=== PATIENT | female | born 1985 | race African-American/Black ===

== ENCOUNTER → 2018-01-27 | Outpatient (CLI) | payer BC ==
[2018-01-27 17:59] LABS: CHOLESTEROL 212.09 mg/dL (0-200); TRIGLYCERIDES 69 mg/dL (<150)
[2018-01-27 18:10] LABS: DIRECT LDL 133 mg/dL (<100)
== END ==
LOC: OD 15:54
PROVIDERS: ATTEND Internal Medicine Geriatric Medicine
DX: E03.9 Hypothyroidism, unspecified (principal); Z68.44 Body mass index [BMI] 60.0-69.9, adult
CPT/HCPCS: 36415; 80061

== ENCOUNTER 2019-08-28 23:01 | Emergency (ER) | payer BC ==
[2019-08-28] MEDS ORDERED: ASPIRIN 81 MG TABLET, CHEWABLE PO ONE (23:49)
[2019-08-29 00:30] LABS: ABSOLUTE BASOPHILS # (AUTO) 0.1 10^3/uL (0.0-0.2); ABSOLUTE EOSINOPHILS # (AUTO) 0.3 10^3/uL (0.0-0.6); ABSOLUTE LYMPHOCYTES (AUTO) 3.9 10^3/uL (0.5-4.7); ABSOLUTE MONOCYTES (AUTO) 0.6 10^3/uL (0.1-1.4); ABSOLUTE NEUT (AUTO) 5.5 10^3/uL (1.7-8.2); BASOPHILS % (AUTO) 0.6 % (0-2); EOSINOPHILS % (AUTO) 2.5 % (0-6); HEMATOCRIT 38.6 % (36.0-47.0); HEMOGLOBIN 12.5 g/dL (12.0-15.5); LYMPHOCYTES % (AUTO) 37.7 % (13-45); MEAN CORPUSCULAR HEMOGLOBIN 27.6 pg (27.0-33.4); MEAN CORPUSCULAR HGB CONC 32.4 g/dL (32.0-36.0); MEAN CORPUSCULAR VOLUME 85 fl (80-97); MONOCYTES % (AUTO) 6.2 % (3-13); PLATELET COUNT 223 10^3/uL (150-450); RED BLOOD COUNT 4.53 10^6/uL (3.72-5.28); RED CELL DISTRIBUTION WIDTH 15.1 % (11.5-14.0); TOTAL CELLS COUNTED % (AUTO) 100 %; WHITE BLOOD COUNT 10.3 10^3/uL (4.0-10.5)
[2019-08-29 00:48] LABS: ALBUMIN 3.7 g/dL (3.5-5.0); ALKALINE PHOSPHATASE 107 U/L (38-126); ANION GAP 9 (5-19); ASPARTATE AMINO TRANSFERASE 27 U/L (14-36); BILIRUBIN,DIRECT 0.1 mg/dL (0.0-0.4); BILIRUBIN,TOTAL 0.4 mg/dL (0.2-1.3); BLOOD UREA NITROGEN 20 mg/dL (7-20); CALCIUM 8.9 mg/dL (8.4-10.2); CARBON DIOXIDE 23 mmol/L (22-30); CHLORIDE 106 mmol/L (98-107); CREATINE KINASE 68 U/L (30-135); GLUCOSE 81 mg/dL (75-110); POTASSIUM 4.2 mmol/L (3.6-5.0); TOTAL PROTEIN 6.9 g/dL (6.3-8.2)
[2019-08-29 00:59] LABS: CREATINE KINASE MB 0.51 ng/mL (<4.55)
[2019-08-29 01:01] LABS: TROPONIN I < 0.012 ng/mL
--- NOTE | 2019-08-29 01:08 | RADIOLOGY REPORT (SQ) ---
CLINICAL HISTORY: cp COMPARISON: None. TECHNIQUE: XR CHEST 2 VIEWS 08/29/2019 12:08 AM CDT FINDINGS: Cardiac silhouette is normal in size. Lungs are clear without consolidation, atelectasis, mass or edema. There is no pleural effusion. There is no pneumothorax. There are no acute osseous findings. IMPRESSION: Clear lungs.
--- NOTE | 2019-08-29 01:34 | ER Document Report ---
ED General - General Chief Complaint: Chest Pain Stated Complaint: CHEST PAIN Time Seen by Provider: 08/29/19 00:03 Primary Care Provider: TIGIST ENGLISH MD [Primary Care Provider] - Follow up as needed Notes: Patient is a 34-year-old female presents to the emergency department for left- sided neck pain. Patient voices she has had left-sided neck pain with some pain radiating to her left upper extremity for approximately a week. Patient voices she read on [employer] that anything in your left upper extremity could be her heart which is why she presents to the emergency room. Patient's denying any chest pain, pressure. She is denying any respiratory distress. Patient voices general malaise. Patient's denying any headache, URI symptoms, fever. Patient is denying any injury or trauma noted to her neck or left upper extremity. Patient voices a history of hypothyroid, takes Synthroid, has no allergies, last menstrual period was 3 weeks ago. TRAVEL OUTSIDE OF THE [place] IN LAST 30 DAYS: No - Related Data Allergies/Adverse Reactions: No Known Allergies Allergy (Verified 02/21/15 19:11) Home Medications: Levothyroxine. control pill Past Medical History - General Information source: Patient - Social History Smoking Status: Never Smoker Chew tobacco use (# tins/day): No Frequency of alcohol use: None Drug Abuse: None Family History: Reviewed & Not Pertinent Patient has suicidal ideation: No Patient has homicidal ideation: No Endocrine Medical History: Reports: Hx Hypothyroidism Past Surgical History: Reports: Hx Section - Immunizations Hx Diphtheria, Pertussis, Tetanus Vaccination: Yes Review of Systems - Review of Systems Constitutional: denies: Fever EENT: See HPI Cardiovascular: See HPI Respiratory: See HPI Gastrointestinal: See HPI Genitourinary: denies: Dysuria Female Genitourinary: See HPI Musculoskeletal: See HPI Skin: See HPI Hematologic/Lymphatic: No symptoms reported Neurological/Psychological: See HPI Physical Exam - Vital signs Vitals: Temp Pulse Resp BP Pulse Ox 97.6 F 96 18 138/79 H 100 08/28/19 23:18 08/28/19 23:18 08/28/19 23:18 08/28/19 23:18 08/28/19 23:18 - Notes Notes: GENERAL: Morbidly obese, alert, interacts well. No acute distress. HEAD: Normocephalic, atraumatic. EYES: Pupils equal, round, and reactive to light. Extraocular movements intact. ENT: Oral mucosa moist, tongue midline. NECK: Full range of motion. Supple. Trachea midline. No nuchal rigidity. Generalized left cervical paraspinal tenderness noted. Pain also noted to the left trapezius muscle. LUNGS: Clear to auscultation bilaterally, no wheezes, rales, or rhonchi. No respiratory distress. HEART: Regular rate and rhythm. No murmur ABDOMEN: Soft, non-tender. Non-distended. Bowel sounds present in all 4 quadrants. EXTREMITIES: Moves all 4 extremities spontaneously. No edema, normal radial and dorsalis pedis pulses bilaterally. No cyanosis. BACK: no cervical, thoracic, lumbar midline tenderness. No saddle anesthesia, normal distal neurovascular exam. NEUROLOGICAL: Alert and oriented x3. Normal speech. cranial nerves II through XII grossly intact. PSYCH: Normal affect, normal mood. SKIN: Warm, dry, normal turgor. No rashes or lesions noted. Course - Re-evaluation Re-evalutation: Initial orders placed by fish hatchery specialist. Laboratory 08/29/19 08/29/19 08/29/19 00:18 00:18 00:18 WBC 10.3 RBC 4.53 Hgb 12.5 Hct 38.6 MCV 85 MCH 27.6 MCHC 32.4 RDW 15.1 H Plt Count 223 Lymph % (Auto) 37.7 Monona % (Auto) 6.2 Eos % (Auto) 2.5 Baso % (Auto) 0.6 Absolute Neuts (auto) 5.5 Absolute Lymphs (auto) 3.9 Absolute Monos (auto) 0.6 Absolute Eos (auto) 0.3 Absolute Basos (auto) 0.1 Seg Neutrophils % 53.0 Sodium 138.4 Potassium 4.2 Chloride 106 Carbon Dioxide 23 Anion Gap 9 BUN 20 Creatinine 0.77 Est GFR ( Amer) > 60 Est GFR (MDRD) Non-Af > 60 Glucose 81 Calcium 8.9 Total Bilirubin 0.4 Direct Bilirubin 0.1 Neonat Total Bilirubin Not Reportable Neonat Direct Bilirubin Not Reportable Neonat Indirect Bili Not Reportable AST 27 ALT 22 Alkaline Phosphatase 107 Creatine Kinase 68 CK-MB (CK-2) 0.51 Troponin I < 0.012 Total Protein 6.9 Albumin 3.7 Chest X-Ray 08/29/19 00:08 IMPRESSION: Clear lungs. Based on patient's physical exam and story I do feel as though her Neck pain is muscular in nature. Patient's denying any chest pain. her initial orders placed by triage nurse as patient was complaining of left arm pain and appare ntly voiced to triage nurse she was concerned about her heart based on something she read on [employer]. Patient has 5 out of 5 strength noted all 4 extremities. She has no nuchal rigidity and no cervical spine tenderness. Patient's denying headache, she is denying any fevers, denying any rash or long exposures to outdoor activities. Discussed with patient treatment with muscle relaxers, Toradol, follow-up with primary care provider. Patient stable for discharge. - Vital Signs Vital signs: Temp Pulse Resp BP Pulse Ox 97.6 F 96 20 148/81 H 98 08/28/19 23:18 08/28/19 23:18 08/29/19 00:08 08/29/19 00:08 08/29/19 00:20 - Laboratory Result Diagrams: 08/29/19 00:18 08/29/19 00:18 Laboratory results interpreted by me: 08/29/19 08/29/19 00:18 02:04 RDW 15.1 H Urine Urobilinogen 2.0 H Ur Leukocyte Esterase TRACE H Discharge - Discharge Clinical Impression: Neck pain Condition: Stable Disposition: HOME, SELF-CARE Additional Instructions: As we discussed you have been seen and treated in the emergency department for your neck pain. I do feel as though this neck pain is muscular in nature. All of your laboratory testing has come back normal. Please make sure you take [id number] Tylenol or Motrin for generalized distress. Please also make sure he follow-up with your primary care provider in the next 12 to 24 hours. Please immediately return to the emergency room for any concerns. Forms: Return to Work Referrals: TIGIST ENGLISH MD [Primary Care Provider] - Follow up as needed
[2019-08-29] MEDS ORDERED: KETOROLAC TROMETHAMINE INJ/PF 30 MG/1 ML SDV IV ONE (01:52)
[2019-08-29] MEDS ORDERED: CYCLOBENZAPRINE HCL 10 MG TABLET PO ONE (01:52)
--- NOTE | 2019-08-29 02:15 | EKG REPORT ---
SEVERITY:- OTHERWISE NORMAL ECG - SINUS TACHYCARDIA : Confirmed by: Tigre Villasenor 29-Aug-2019 02:14:39
[2019-08-29 02:26] LABS: APPEARANCE,URINE SLIGHTLY-CLOUDY; BILIRUBIN,URINE NEGATIVE (NEGATIVE); COLOR,URINE YELLOW; GLUCOSE, URINE NEGATIVE (NEGATIVE); KETONES,URINE NEGATIVE (NEGATIVE); LEUKOCYTE ESTERASE,URINE TRACE (NEGATIVE); NITRITE,URINE NEGATIVE (NEGATIVE); PROTEIN,URINE NEGATIVE (NEGATIVE); URINE SPECIFIC GRAVITY 1.027
[2019-08-29 02:54] VITALS: BP 144/87
== END 2019-08-29 02:54 | disposition home or self-care (01) ==
LOC: ER 23:01
DX: M54.2 Cervicalgia (principal); R07.9 Chest pain, unspecified; E03.9 Hypothyroidism, unspecified
CPT/HCPCS: 93005; 36415; 82553; 82550; 84703; 85025; 80053; 81001; 84484; 71046; 93010; J1885; 96374; 99284

== ENCOUNTER 2020-09-19 18:08 | Emergency (ER) | payer BC ==
--- NOTE | 2020-09-19 19:05 | ER Document Report ---
ED Medical Screen (RME) - General Chief Complaint: Chest Pain > 30 Stated Complaint: CHEST PAIN Time Seen by Provider: 09/19/20 18:59 Primary Care Provider: TIGIST ENGLISH MD [Primary Care Provider] - Follow up as needed Mode of Arrival: Ambulatory Information source: Patient Notes: 35-year-old female presented to ED for complaint of body aches for the last 2 days. She states it started on the right arm than the left arm than the neck did not start her body aches all over then yesterday and today she has had chest pain to come and go. She states she did have nasal congestion a couple weeks ago but does not at this time. She does not have the sore throat or any fevers chills nausea or vomiting. She states her mother has scared to that she was having a cardiac arrest. The patient was evaluated during the global Covid 19 pandemic, and that diagnosis was suspected/considered upon their initial presentation. Their evaluation, treatment and testing was consistent with current guidelines for patients who present with complaints or symptoms that may be related to Covid 19. I have greeted and performed a rapid initial assessment of this patient. A comprehensive ED assessment and evaluation of the patient, analysis of test results and completion of medical decision making process will be conducted by an additional ED providers. TRAVEL OUTSIDE OF THE [place] IN LAST 30 DAYS: No - Related Data Allergies/Adverse Reactions: No Known Allergies Allergy (Verified 09/19/20 18:58) Past Medical History Endocrine Medical History: Reports: Hx Hypothyroidism Past Surgical History: Reports: Hx Section - Immunizations Hx Diphtheria, Pertussis, Tetanus Vaccination: Yes Physical Exam - Vital signs Vitals: Temp Pulse Resp BP Pulse Ox 98.4 F 87 18 137/79 H 100 09/19/20 18:37 09/19/20 18:37 09/19/20 18:37 09/19/20 18:37 09/19/20 18:37 Course - Vital Signs Vital signs: Temp Pulse Resp BP Pulse Ox 98.4 F 87 18 137/79 H 100 09/19/20 18:37 09/19/20 18:37 09/19/20 18:37 09/19/20 18:37 09/19/20 18:37 Doctor's Discharge - Discharge Referrals: TIGIST ENGLISH MD [Primary Care Provider] - Follow up as needed
--- NOTE | 2020-09-19 19:46 | RADIOLOGY REPORT (SQ) ---
EXAM DESCRIPTION: CHEST SINGLE VIEW IMAGES COMPLETED DATE/TIME: 09/19/2020 7:36 pm REASON FOR STUDY: chest pain COMPARISON: 08/29/2019 EXAM PARAMETERS: NUMBER OF VIEWS: One view. TECHNIQUE: Single frontal radiographic view of the chest acquired. RADIATION DOSE: NA LIMITATIONS: None. FINDINGS: LUNGS AND PLEURA: No opacities, masses or pneumothorax. No pleural effusion. MEDIASTINUM AND HILAR STRUCTURES: No masses. Contour normal. HEART AND VASCULAR STRUCTURES: Heart normal in size. Normal vasculature. BONES: No acute findings. HARDWARE: None in the chest. OTHER: No other significant finding. IMPRESSION: NO ACUTE RADIOGRAPHIC FINDING IN THE CHEST. TECHNICAL DOCUMENTATION: JOB ID: [id number] 2010 [employer]- All Rights Reserved Reading location - IP/workstation name: [email or web address]
--- NOTE | 2020-09-19 21:07 | ER Document Report ---
ED General - General Chief Complaint: Chest Pain > 30 Stated Complaint: CHEST PAIN Time Seen by Provider: 09/19/20 18:59 Primary Care Provider: TIGIST ENGLISH MD [Primary Care Provider] - Follow up as needed Mode of Arrival: Ambulatory Information source: Patient Notes: Patient is a 35-year-old female comes emergency room with a 2 to 3-day onset of generalized body aches. Patient states that on Thursday evening patient had some discomfort in her right arm which moved on Thursday to the left arm and bilateral lower extremities and then it moved up to the neck and then finally all over the body today of having discomfort and aches. Patient states her mother scared her with her complaints that she might be having a heart attack so she is here to ER Evaluation. Patient does acknowledge that she had a similar presentation approximately 1 year ago in March 2019 was seen here and then followed up with Dr. nEglish who told her it was a tension type presentation gave her a shot and she has not had any problems since that point time. Patient states she has only a history of hypothyroidism and gets that checked every 6 months by that doctor. She works at home in [employer] and is on the computer a lot. No history of heart disease in the family with the exception of the mother who has had to heart attacks in the past. And mother also has a history of diabetes but no one else in the family does. Patient currently does not smoke drink or do drugs. She is currently taking oral control. Last menstrual was August 22. Currently she is having no chest pain she only had a couple of short instances where she had a little Twitter in the heart but that stopped. 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 Son is home schooled. Patient does not leave the house often. does go out and about but wears a mask. No known exposures to coronavirus. Patient has not been tested for it. TRAVEL OUTSIDE OF THE [place] IN LAST 30 DAYS: No - HPI Onset: Other - 3 days Onset/Duration: Gradual Quality of pain: Achy Severity: Moderate Pain Level: 3 Associated symptoms: Body/muscle aches, Chest pain. denies: Nonproductive cough, Productive cough, Fever, Nausea, Vomiting, Shortness of breath, Sweating, Weakness Exacerbated by: Denies Relieved by: Denies Similar symptoms previously: Yes Recently seen / treated by doctor: No - Related Data Allergies/Adverse Reactions: No Known Allergies Allergy (Verified 09/19/20 18:58) Home Medications: thyroid. control. pertmine ? Past Medical History - General Information source: Patient - Social History Smoking Status: Never Smoker Cigarette use (# per day): No Chew tobacco use (# tins/day): No Frequency of alcohol use: None Drug Abuse: None Lives with: Family Family History: Reviewed & Not Pertinent Patient has homicidal ideation: No Endocrine Medical History: Reports: Hx Hypothyroidism Past Surgical History: Reports: Hx Section - Immunizations Hx Diphtheria, Pertussis, Tetanus Vaccination: Yes Review of Systems - Review of Systems Constitutional: No symptoms reported EENT: No symptoms reported Cardiovascular: See HPI, Chest pain Respiratory: No symptoms reported Gastrointestinal: No symptoms reported Genitourinary: No symptoms reported Female Genitourinary: No symptoms reported Musculoskeletal: See HPI, Muscle pain, Neck pain - 35 but cardiac vital signs of Skin: No symptoms reported Hematologic/Lymphatic: No symptoms reported Neurological/Psychological: No symptoms reported -: Yes All other systems reviewed and negative Physical Exam - Vital signs Vitals: Temp Pulse Resp BP Pulse Ox 98.4 F 87 18 137/79 H 100 09/19/20 18:37 09/19/20 18:37 09/19/20 18:37 09/19/20 18:37 09/19/20 18:37 Interpretation: Hypertensive - Notes Notes: PHYSICAL EXAMINATION: GENERAL: Well-appearing, well-nourished and in no acute distress. HEAD: Atraumatic, normocephalic. EYES: Pupils equal round and reactive to light, extraocular movements intact, conjunctiva are normal. ENT: Nares patent, oropharynx clear without exudates. Moist mucous membranes. NECK: Normal range of motion, supple without lymphadenopathy LUNGS: Breath sounds clear to auscultation bilaterally and equal. No wheezes rales or rhonchi. HEART: Regular rate and rhythm without murmurs ABDOMEN: Soft, nontender, nondistended abdomen. No guarding, no rebound. No masses appreciated. Female : deferred Musculoskeletal: Normal range of motion, no pitting or edema. No cyanosis. NEUROLOGICAL: Normal speech, normal gait. Normal sensory, motor exams PSYCH: Normal mood, normal affect. SKIN: Warm, Dry, normal turgor, no rashes or lesions noted. Course - Re-evaluation Re-evalutation: 09/19/20 21:11 Patient does see on a fairly regular basis. Patient states that she gets her cholesterol checked often twice a year and she is on no cholesterol medications. She does have a history of hypothyroidism is taking medications she was checked few months back. But given the patient is having little twinges in her heart and body aches and pains I am going to repeat the TSH here tonight. We will do a quick cardiac work-up although I do not expect to find anything cardiac maurice. Patient does sit at a computer all day long which would explain her neck pain although she has no neurologic deficits and she has full range of motion in all planes with her cervical spine without any discomfort. There are no palpable spasms in the neck noted at this time either. And she has good follow-up as stated with her primary doctor. 09/19/20 23:35 Patient's lab work came back showing that she has a slight shift with her neutrophils starting to be a little bit lower with a slightly low WBC of 3.6. I looked at this to be some type of viral presentation. I did check her cardiac enzymes that are negative EKG is perfectly textbook normal and patient is feeling much better now just being here. She has had no fever no nausea no vomiting or diarrhea no chest pain anymore since she has been here. No history of cardiac on her side. So I feel safe sending her home especially since she has good follow-up with Dr. English patient will contact her office tomorrow and set an appointment. She has been instructed to return here if she should get short of breath or have increasing fevers. - Vital Signs Vital signs: Temp Pulse Resp BP Pulse Ox 98.7 F 85 17 136/77 H 99 09/19/20 22:31 09/19/20 22:31 09/19/20 22:31 09/19/20 22:31 09/19/20 22:31 - Laboratory Result Diagrams: 09/19/20 22:15 09/19/20 22:15 Laboratory results interpreted by me: 09/19/20 09/19/20 22:15 22:15 WBC 3.6 L RDW 14.1 H Lymph % (Auto) 51.6 H Absolute Neuts (auto) 1.3 L Seg Neutrophils % 35.4 L Sodium 135.2 L Glucose 124 H - EKG Interpretation by Me EKG shows normal: Sinus rhythm - 86 bpm, Marissa - Normal axis, Intervals - Normal intervals, QRS Complexes - Normal QRS complexes, ST-T Waves - ST-T waves appear normal Rate: Normal Rhythm: NSR Marissa/QRS: No: Right axis deviation, Left axis deviation, RBBB, LBBB Voltage: No: Increased voltage When compared to previous EKG there are: No significant change Additional EKG results interpreted by me: 09/19/20 21:44 Reviewed by myself emergency room physician certified ophthalmic surgical assistant also reviewed by the emergency room physician and finding no abnormalities. Discharge - Discharge Clinical Impression: Upper respiratory infection, viral, Atypical chest pain, Viral syndrome Condition: Stable Disposition: HOME, SELF-CARE Instructions: Acetaminophen, Viral Syndrome ([facility]) Additional Instructions: Home and rest. Tylenol alternate with Motrin every 4 hours for body aches pains and fevers. As we discussed your TSH is in the middle of the road which is perfect. Your EKG was normal sinus rhythm and no sign of any abnormalities. And your lab work as we discussed showed a little bit of a shift towards a viral and with your neutrophils being low. As we discussed you have a low risk for any coronavirus contact however is always the possibility somewhere along the li ne you did come in contact with that so at this point it takes 48 to 72 hours for the test to come back. And as stated they will email you. As we have discussed if you have any increasing pain or discomfort return to ER for reevaluation. Follow-up with the end of this week or the first of next. Forms: Elevated Blood Pressure Referrals: TIGIST ENGLISH MD [Primary Care Provider] - Follow up as needed
[2020-09-19 22:32] VITALS: BP 136/77
[2020-09-19 22:35] LABS: ABSOLUTE LYMPHOCYTES (AUTO) 1.9 10^3/uL (0.5-4.7); ABSOLUTE MONOCYTES (AUTO) 0.4 10^3/uL (0.1-1.4); ABSOLUTE NEUT (AUTO) 1.3 10^3/uL (1.7-8.2); BASOPHILS % (AUTO) 1.2 % (0-2); EOSINOPHILS % (AUTO) 0.6 % (0-6); HEMATOCRIT 38.5 % (36.0-47.0); HEMOGLOBIN 12.7 g/dL (12.0-15.5); LYMPHOCYTES % (AUTO) 51.6 % (13-45); MEAN CORPUSCULAR HEMOGLOBIN 27.8 pg (27.0-33.4); MEAN CORPUSCULAR VOLUME 84 fl (80-97); MONOCYTES % (AUTO) 11.2 % (3-13); PLATELET COUNT 202 10^3/uL (150-450); RED BLOOD COUNT 4.57 10^6/uL (3.72-5.28); RED CELL DISTRIBUTION WIDTH 14.1 % (11.5-14.0); SEGMENTED NEUTROPHILS % (AUTO) 35.4 % (42-78); TOTAL CELLS COUNTED % (AUTO) 100 %; WHITE BLOOD COUNT 3.6 10^3/uL (4.0-10.5)
[2020-09-19 22:58] LABS: ALBUMIN 3.8 g/dL (3.5-5.0); ALKALINE PHOSPHATASE 119 U/L (38-126); ANION GAP 10 (5-19); ASPARTATE AMINO TRANSFERASE 24 U/L (14-36); BILIRUBIN,TOTAL 0.2 mg/dL (0.2-1.3); BLOOD UREA NITROGEN 15 mg/dL (7-20); CALCIUM 8.8 mg/dL (8.4-10.2); CARBON DIOXIDE 24 mmol/L (22-30); CHLORIDE 101 mmol/L (98-107); CREATINE KINASE 51 U/L (30-135); GLUCOSE 124 mg/dL (75-110); POTASSIUM 4.1 mmol/L (3.6-5.0)
--- NOTE | 2020-09-21 00:29 | EKG REPORT ---
SEVERITY:- NORMAL ECG - SINUS RHYTHM : Confirmed by: Tigre Villasenor 21-Sep-2020 00:28:47
--- OUTSIDE RECORDS SUMMARY | 2020-09-21 14:46 | XMS REPORT ---
:1985 [facility] Address [facility] [address] [place] [address] Care Team Providers Name Role Phone HARJINDER Attending Clinician Unavailable Allergies, Adverse Reactions, Alerts This patient has no known allergies or adverse reactions. Medications Ordered Filled Start Stop Current Ordering Indication Dosage Frequency Signature Comments Components Medication Medication Date Date Medication? Clinician (SIG) Name Name Saxenda 3 2019-11 No 3mL Q1D Saxenda 3 mg/0.5 mL 0-15 mg/0.5 mL (18 mg/3 00:00: (18 mg/3 mL) 00 mL) subcutaneou subcutaneo s pen us pen injector injector Inject 3 mL Inject 3 every day mL every by sub-q day by route as sub-q directed route as for 30 directed days. for 30 days. diethylprop No diethylpro ion 25 mg pion 25 mg tablet TAKE tablet ONE TABLET TAKE ONE TID TABLET TID levothyroxi No levothyrox ne 50 mcg ine 50 mcg tablet TAKE tablet 1 TABLET TAKE 1 DAILY TABLET DAILY clotrimazol No clotrimazo e-betametha le-betamet sone 1 hasone 1 %-0.05 % %-0.05 % topical topical cream APPLY cream TO THE APPLY TO AFFECTED THE AND AFFECTED SURROUNDING AND AREAS OF SURROUNDIN SKIN BY G AREAS OF TOPICAL SKIN BY ROUTE 2 TOPICAL TIMES PER ROUTE 2 DAY IN THE TIMES PER MORNING AND DAY IN THE EVENING for MORNING maximum of AND 2 weeks EVENING for maximum of 2 weeks cyclobenzap No 1 TID cyclobenza rine 5 mg sonja 5 mg tablet Take tablet 1 tablet 3 Take 1 times a day tablet 3 by oral times a route as day by directed. oral route as directed. Mobic 15 mg No 1 Q1D Mobic 15 tablet Take mg tablet 1 tablet Take 1 every day tablet by oral every day route as by oral needed. route as needed. meloxicam No meloxicam 15 mg 15 mg tablet Take tablet 1 tablet Take 1 every day tablet by oral every day route as by oral needed. route as needed. Synthroid No Synthroid 50 mcg 50 mcg tablet TAKE tablet 1 TABLET TAKE 1 DAILY TABLET DAILY phentermine No 1 Q1D phentermin 37.5 mg e 37.5 mg tablet Take tablet 1 tablet Take 1 every day tablet by oral every day route for by oral 30 days. route for 30 days. Adderall XR No Adderall 20 mg XR 20 mg capsule,ext capsule,ex ended tended release release Adderall XR No Adderall 30 mg XR 30 mg capsule,ext capsule,ex ended tended release release bupropion No bupropion HCl XL 150 HCl XL 150 mg 24 hr mg 24 hr tablet, tablet, extended extended release release bupropion No bupropion HCl XL 300 HCl XL 300 mg 24 hr mg 24 hr tablet, tablet, extended extended release release clonazepam No clonazepam 1 mg tablet 1 mg tablet dextroamphe No dextroamph tamine-amph etamine-am etamine 15 phetamine mg tablet 15 mg tablet dextroamphe No dextroamph tamine-amph etamine-am etamine 30 phetamine mg tablet 30 mg tablet ergocalcife No ergocalcif rol trudi (vitamin (vitamin D2) 1,250 D2) 1,250 mcg (50,000 mcg unit) (50,000 capsule unit) capsule fluoxetine No fluoxetine 20 mg 20 mg capsule capsule dicyclomine No 1capsul TID dicyclomin 10 mg e(s) e 10 mg capsule capsule Take 1 Take 1 capsule 3 capsule 3 times a day times a by oral day by route as oral route needed for as needed 30 days. for 30 days. Saxenda 3 No 3mg Q1D Saxenda 3 mg/0.5 mL mg/0.5 mL (18 mg/3 (18 mg/3 mL) mL) subcutaneou subcutaneo s pen us pen injector injector Inject 3 mg Inject 3 every day mg every by day by subcutaneou subcutaneo s route for us route 30 days. for 30 days. 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 30 mg 30 mg tablet tablet Problems Condition Condition Condition Status Onset Resolution Last Treatin g Comments Name Details Category Date Date Treatment Clinician Date Obstructive Obstructive Problem Active sleep apnea Sleep Apnea 8-18 syndrome Syndrome 00:00: 00 Sleep Sleep Problem Active disorder Disorder 1-22 00:00: 00 Hypothyroid Hypothyroid Problem Active ism ism 11-24 00:00: 00 Morbid Morbid Problem Active obesity Obesity 11-24 00:00: 00 Dyspnea Dyspnea Problem Active 11-24 00:00: 00 Hypothyroid Hypothyroid Problem Active ism ism 01-30 00:00: 00 Morbid Morbid Problem Active obesity Obesity 01-30 00:00: 00 Seasonal Seasonal Problem Active allergic Allergic 01-30 rhinitis Rhinitis 00:00: 00 Menorrhagia Menorrhagia Problem Active 01-30 00:00: 00 Disturbance Disturbance Problem Active in sleep in Sleep 01-30 behavior Behavior 00:00: 00 Procedures Procedure Date / Time Performed Performing Clinician Ely martinez sleep study, diagnostic (PROC) 2020-04-20 00:00:00 US, echocardiogram 2019-11-24 00:00:00 cardiopulmonary stress test (PROC) 2019-11-24 00:00:00 Caesarean Section 2011-01-30 00:00:00 Results Test Description Test Time Test Comments Text Results Atomic Results Result Comments CBC W Auto Differential panel - Blood 2020-08-23 09:33:00 Test Item Value Reference Range Comments WBC (test code = WBC) 7.5 K/uL 4.1-10.9 lym% (test code = lym%) 44.5 % 10.0-58.5 lym# (test code = lym#) 3.3 % 0.6-4.1 mxd# (test code = mxd#) 0.4 % 0.0-1.8 mxd% (test code = mxd%) 5.8 % 0.1-24.0 gran (test code = gran) 3.7 % 2.0-7.8 gran% (test code = gran%) 49.7 % 37.0-92.0 RBC (test code = RBC) 4.36 M/uL 4.20-6.30 HGB (test code = HGB) 12.3 g/dL 14.1-18.1 HCT (test code = HCT) 37.9 % 34.5-53.7 MCV (test code = MCV) 86.9 fL 80.0-97.0 MCH (test code = MCH) 28.2 pg 26.0-32.0 MCHC (test code = MCHC) 32.5 g/dL 31.0-36.0 RDW (test code = RDW) 15.5 % 11.5-14.5 plt (test code = plt) 237 K/uL 140-440 MPV (test code = MPV) 10.0 fL 0.0-99.8 Triiodothyronine (T3).reverse [Mass/volume] in Serum or [id number] 00:00:00 Test Item Value Reference Range Comments Triiodothyronine (T3).reverse [Mass/volume] in 24.7 NG/dL 9 .2-24.1 Serum or Plasma (test code = 3052-8) Thyrotropin [Units/volume] in Serum or [id number] 00:00:00 Test Item Value Reference Range Comments Thyrotropin [Units/volume] in Serum or Plasma 3.1 uu/mL (test code = 3016-3) Thyroxine (T4) free [Mass/volume] in Serum or [id number] 00:00:00 Test Item Value Reference Range Comments Thyroxine (T4) free [Mass/volume] in Serum or 1.40 NG/dL 0. 82-1.77 Plasma (test code = 3024-7) Thyroxine (T4) [Mass/volume] in Serum or [id number] 00:00:00 Test Item Value Reference Range Comments Thyroxine (T4) [Mass/volume] in Serum or Plasma 10.0 ug/dL 4.5-12.0 (test code = 3026-2) Thyroperoxidase Ab [Units/volume] in [id number] 00:00:00 Test Item Value Reference Range Comments Thyroperoxidase Ab [Units/volume] in Serum (test 9 IU/mL 0-34 code = 8099-4) Triiodothyronine (T3) Free [Mass/volume] in Serum or [id number] 00:00:00 Test Item Value Reference Range Comments Triiodothyronine (T3) Free [Mass/volume] in Serum 3.1 pg/mL 2.0-4.4 or Plasma (test code = 3051-0) Cortisol [Mass/volume] in Serum or Plasma --morning [id number] 00:00:00 Test Item Value Reference Range Comments Cortisol [Mass/volume] in Serum or Plasma 12.2 ug/dL 6.2-19 .4 --morning specimen (test code = 9813-7) Cortisol [Mass/volume] in Serum or Plasma --evening [id number] 00:00:00 Test Item Value Reference Range Comments Cortisol [Mass/volume] in Serum or Plasma --evening tnp specimen (test code = 9812-9) Assessments Condition Name Status Diagnosis Date Treating Clinici an Screening for malignant neoplasm of 2020-08-24 1 1:32:20 cervix Routine gynecologic examination done 2020-08-24 11:32:25 Adult health examination 2020-08-23 08:24:59 Active or passive immunization 2020-08-23 08:24: 59 Screening for malignant neoplasm of 2020-08-23 0 8:24:59 cervix Obstructive sleep apnea syndrome 2020-08-23 09:0 6:59 Morbid obesity 2020-08-23 09:29:18 Contact dermatitis 2020-08-23 09:34:27 Diarrhea 2020-07-31 17:45:05 Stomach cramps 2020-07-31 17:50:13 Obstructive sleep apnea syndrome 2020-06-26 15:5 2:05 Hypothyroidism 2020-06-26 15:49:37 Morbid obesity 2020-06-26 08:49:42 Hypothyroidism 2020-05-21 16:26:34 Morbid obesity 2020-05-21 16:26:37 Exposure to 2018 novel coronavirus 2020-05-22 14 :32:48 Hypothyroidism Active 2020-04-20 09:23:28 Sleep disorder 2020-04-20 09:23:31 Morbid obesity 2020-04-20 09:23:32 Hypothyroidism 2020-03-21 09:54:15 Morbid obesity 2020-03-21 09:54:13 Malaise and fatigue Active 2020-03-22 12:59:08 Hypothyroidism Active 2020-02-21 08:50:49 Morbid obesity Active 2020-02-21 08:50:50 Hypothyroidism Active 2020-01-18 11:19:01 Morbid obesity Active 2020-01-18 11:19:02 Sleep disorder Active 2020-01-18 11:19:30 Anemia Active 2019-11-30 13:07:30 Sleep disorder Active 2019-11-30 13:15:10 Hypothyroidism Active 2019-11-30 11:33:28 Morbid obesity Active 2019-11-30 11:33:29 Morbid obesity Active 2019-11-24 14:17:39 Dyspnea Active 2019-11-24 14:17:40 Hypothyroidism Active 2019-11-24 14:17:41 Hypothyroidism Active 2019-09-14 10:32:02 Morbid obesity Active 2019-09-14 10:32:09 Disturbance in sleep behavior Active 2019-09-14 10:32:3 0 Influenza vaccination Active 2019-09-14 12:30:53 Muscle spasm of cervical muscle of neck Active 09:10:38 Tinea corporis Active 2019-08-30 09:21:13 Influenza vaccination Active 2019-08-30 09:23:06 Adult health examination Active 2019-08-03 13:50:25 Immunization Active 2019-08-03 13:50:25 Screening for malignant neoplasm of Active 2019-08-03 1 3:50:25 cervix Morbid obesity Active 2019-08-03 14:50:36 Hypothyroidism Active 2019-08-03 14:50:09 Obstructive sleep apnea of adult Active 2019-08-03 15:0 6:02 Encounters Start End Encounter Admission Attending Care Care Encounter Date/Time Date/Time Type Type Clinicians Facility Department ID 2020-08-24 2020-08-24 [facility] _[id number] 00:00:00 00:00:00 DONNA Leo: Mireille Kendrick 16 [address] [facility] [place] [address], Ph. 2020-08-23 2020-08-23 [facility] _[id number] 00:00:00 00:00:00 DONNA Leo: Mireille Kendrick 15 [address] [facility] [place] [address], Ph. 2020-07-31 2020-07-31 [facility] _ 00:00:00 00:00:00 YANN LeoP: [facility] 22 [address] [facility] [place] [address], Ph. 2020-06-26 2020-06-26 [facility] _ 00:00:00 00:00:00 YANN LeoP: [facility] 18 25 [facility], [place] [address], Ph. 2020-05-22 2020-05-22 [facility] _ 00:00:00 00:00:00 DONNA Leo: [facility] 14 25 [facility], [place] [address], Ph. 2020-04-20 2020-04-20 [place] [id number]_ 00:00:00 00:00:00 [facility] 12 [facility] MD: [address] [facility] [place] [address], Ph. 2020-03-22 2020-03-22 [facility] _ 00:00:00 00:00:00 [facility] 14 Radhames Gregory Medical MD: [address] [facility] [place] [address], Ph. 2020-02-21 2020-02-21 [place] [id number]_ 00:00:00 00:00:00 [facility] 14 Radhames Gregory Medical MD: [address] [facility] [place] [address], Ph. 2020-01-18 2020-01-18 [place] [id number]_ 00:00:00 00:00:00 [facility] 11 Radhames Gregory Medical MD: [address] [facility] [place] [address], Ph. 2019-11-30 2019-11-30 [facility] _ 00:00:00 00:00:00 [facility] 22 Colt, Medical Medical MD: [address] [place] [address], Ph. 2019-11-24 2019-11-24 Replaced By [facility] 00:00:00 00:00:00 Leandro, Surgical Surgical [address] P[address] [facility] [place] [address], Ph. 2019-09-14 2019-09-14 [place] [id number] 00:00:00 00:00:00 [facility] 06 Mirandaa, Medical Medical MD: [address] [place] [address], Ph. 2019-08-30 2019-08-30 [facility] _ 00:00:00 00:00:00 [place] [id number] Colt, Medical Medical MD: [address] [place] [address], Ph. 2019-08-03 2019-08-03 [place] [id number]_ 00:00:00 00:00:00 [place] [address] Colt, Medical Medical MD: [address] [place] [address], Ph. 2017-10-22 2017-10-22 [id number] 03:48:00 03:48:00 RUPESH Okeefe Payers Payer Name Policy Type Policy Number Effective Date Expiration D ate Plan of Treatment Planned Activity Planned Date Details Comments Future Appointment 2020-09-26 08:30:00 Олег Jerrodoya, 25 [facility]; , [place] [address] Future Appointment 2020-09-23 00:00:00 Олег Osunkoya, 25 [facility]; , [place] [address] Social History Smoking Status Start Date Stop Date Never Smoker Vital Signs Vital Name Observation Time Observation Value Comments BP Diastolic 2020-08-24 00:00:00 80 mm[Hg] Height 2020-08-24 00:00:00 64 [in_i] BMI (Body Mass Index) 2020-08-24 00:00:00 66.2 kg/m2 BP Systolic 2020-08-24 00:00:00 143 mm[Hg] Body Weight 2020-08-24 00:00:00 385.8 [lb_av] BP Diastolic 2020-08-23 00:00:00 87 mm[Hg] Height 2020-08-23 00:00:00 64 [in_i] BMI (Body Mass Index) 2020-08-23 00:00:00 66.5 kg/m2 BP Systolic 2020-08-23 00:00:00 140 mm[Hg] Body Weight 2020-08-23 00:00:00 387.4 [lb_av] Height 2020-07-31 00:00:00 64 [in_i] Height 2020-06-26 00:00:00 64 [in_i] Height 2020-05-22 00:00:00 64 [in_i] BMI (Body Mass Index) 2020-05-22 00:00:00 63.5 kg/m2 Body Weight 2020-05-22 00:00:00 370.2 [lb_av] BP Diastolic 2020-04-20 00:00:00 80 mm[Hg] Height 2020-04-20 00:00:00 64 [in_i] BMI (Body Mass Index) 2020-04-20 00:00:00 64.3 kg/m2 BP Systolic 2020-04-20 00:00:00 137 mm[Hg] Body Weight 2020-04-20 00:00:00 374.4 [lb_av] Height 2020-03-22 00:00:00 64 [in_i] BMI (Body Mass Index) 2020-03-22 00:00:00 64.7 kg/m2 Body Weight 2020-03-22 00:00:00 376.7 [lb_av] BP Diastolic 2020-01-18 00:00:00 88 mm[Hg] Height 2020-01-18 00:00:00 64 [in_i] BMI (Body Mass Index) 2020-01-18 00:00:00 65.6 kg/m2 BP Systolic 2020-01-18 00:00:00 138 mm[Hg] Body Weight 2020-01-18 00:00:00 382 [lb_av] BP Diastolic 2019-11-30 00:00:00 88 mm[Hg] Height 2019-11-30 00:00:00 64 [in_i] BMI (Body Mass Index) 2019-11-30 00:00:00 66.3 kg/m2 BP Systolic 2019-11-30 00:00:00 139 mm[Hg] Body Weight 2019-11-30 00:00:00 386 [lb_av] Height 2019-11-24 00:00:00 63 [in_i] BMI (Body Mass Index) 2019-11-24 00:00:00 68.9 kg/m2 Body Weight 2019-11-24 00:00:00 389 [lb_av] BP Diastolic 2019-11-24 00:00:00 87 mm[Hg] BP Systolic 2019-11-24 00:00:00 138 mm[Hg] BP Diastolic 2019-09-14 00:00:00 81 mm[Hg] Height 2019-09-14 00:00:00 64 [in_i] BMI (Body Mass Index) 2019-09-14 00:00:00 66.6 kg/m2 BP Systolic 2019-09-14 00:00:00 118 mm[Hg] Body Weight 2019-09-14 00:00:00 388 [lb_av] BP Diastolic 2019-08-30 00:00:00 80 mm[Hg] Height 2019-08-30 00:00:00 64 [in_i] BMI (Body Mass Index) 2019-08-30 00:00:00 67.3 kg/m2 BP Systolic 2019-08-30 00:00:00 141 mm[Hg] Body Weight 2019-08-30 00:00:00 392.2 [lb_av] BP Diastolic 2019-08-03 00:00:00 82 mm[Hg] Height 2019-08-03 00:00:00 64 [in_i] BMI (Body Mass Index) 2019-08-03 00:00:00 66.4 kg/m2 BP Systolic 2019-08-03 00:00:00 117 mm[Hg] Body Weight 2019-08-03 00:00:00 387 [lb_av] WEIGHT 2017-10-22 12:00:00 173.7 kg HEIGHT 2017-10-22 12:00:00 165.150738 cm WEIGHT 2017-10-22 09:15:00 173.7 kg HEIGHT 2017-10-22 09:15:00 165.658346 cm HEIGHT 2017-10-22 03:48:00 165.539243 cm WEIGHT 2017-10-22 03:48:00 173.7 kg Hospital Discharge Instructions 1. Diarrhea unlisted lab - C diff+O+P+stool culture+WBC diarrhea: care instructions SARSCoV 2 RNA, QL, nasopharynx 2. Stomach cramps dicyclomine 10 mg capsule gastroenteritis: careinstructions abdominal pain: care instructions Discussion Note Patient verbalized understanding and agreement with recommended care plan. All questions and concerns were addressed and answered adequately. Follow up visit will address ape1. Obstructive sleep apnea syndrome sleep apnea: care instructions 2. Hypothyroidism hypothyr oidism: care instructions 3. Morbid obesity phentermine 37.5 mg tablet eating healthy foods:care instructions walking for exercise: care instructions when you are overweight: care instructions Discussion Note Patient verbalized understanding and agreement with recommended care plan. All questions and concerns were addressed and answered adequately. Follow up visit will address ape1. 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 Morbid obesity when you are overweight: care instructions phentermine 37.5 mg tablet Saxenda 3 mg/0.5 mL (18 mg/3 mL) subcutaneous pen injector eating healthy foods: care instructions walking forexercise: care instructions 3. Exposure to 2019 novel coronavirus hand-washing: care instructions Discussion Note Patient verbalized understanding and agreement with recommended care plan. All questions and concerns were addressed and answered adequately. Follow up visit will address ape1. Hypothyroidism 2. Morbid obesity phentermine 37.5 mg tablet Discussion Note Patient verbalized understanding and agreement with recommended care plan. All questions and concerns were addressed and answered adequately. Follow up visit will address hypothyroidism, wgt mgt. Patient educational handouts: No information available.1. Hypothyroidism hypothyroidism: care instructions TSH, serum or plasma T3, free, serumor plasma T4, free, serum T4, total, serum 2. Morbid obesity when you are overweight: care instructions phentermine 37.5 mg tablet 3. Sleep disorder Discussion Note Patient verbalized understanding and agreement with recommended care plan. All questions and concerns were addressed and answered adequately. Follow up visit will address hypothyroidism, morbid obesity1. Hypothyroidism hypothyroidism: care instructions TSH, serum or plasma T3, free, serumor plasma unlisted lab - T4, free 2. Morbid obesity lipid panel, blood CMP, serum or plasma starting a weight loss plan: care instructions phentermine 37.5 mg tablet 3. Anemia CBC w/ auto diff anemia: care instructions 4. Sleep disorder sleep study referral sleep apnea: care instructions insomnia: care instructions snoring: care instructions Discussion Note Patient verbalized understanding and agreement with recommended care plan. All questions and concerns were addressed and answered adequately. Follow up visit will address hypothyroid, wgt mgt, matthew.None recorded. Discussion Note: None recorded. Patient educational handouts: No information available.1. Adult health examination well visit, ages 18 to 50: care instructions wellness education eating healthy foods: care instructions walking for exercise: care instructions A healthylifestyle: care instructions 2. Immunization immunization: what you need to know pneumococcal polysaccharide vaccine: what you need to know Tdap (tetanus, diphtheria, pertussis) vaccine: what you need to know 3. Screening for malignant neoplasm of cervix learning about Pap tests human papillomavirus (HPV): care instructions 4. Morbid obesity when you are overweight: care instructions cortisol, am, serum cortisol, pm, serum 5. Hypothyroidism levothyroxine 50 mcg tablet hypothyroidism: care instructions T3, free, serum or plasma thyroid peroxidase (tpo)Ab, serum T4, free, serum TSH, serum or plasma T4, total, serum T3, reverse, serum 6. Obstructive sleep apnea of adult Home Sleep Apnea Testing - Neck size 141/2 inches; STOP BANG score: 3 Fluker Score: 7 Discussion Note Patient verbalized understanding and agreement with recommend ed care plan. All questions and concerns were addressed and answered adequately. Follow up visit will address hypothyroidism, matthew, wgt mgt
== END 2020-09-19 23:41 | disposition home or self-care (01) ==
LOC: ER 18:08
DX: J06.9 Acute upper respiratory infection, unspecified (principal); B34.9 Viral infection, unspecified; R07.89 Other chest pain; M79.10 Myalgia, unspecified site; Z79.3 Long term (current) use of hormonal contraceptives; Z20.828 Contact with and (suspected) exposure to other viral communicable diseases
CPT/HCPCS: 99285; 36415; 82550; 84443; 85025; 80053; 84484; 71045; U0003; C9803; 87635; 93005; 93010